=== PATIENT | female | born 1980 | race Caucasian/White ===

== ENCOUNTER 2018-10-01 19:29 | Emergency (ER) | payer OTHER ==
[~2018-10-01] VITALS: Ht 165.1 cm; Wt 123.4 kg
[~2018-10-01 19:29] MED LIST: COL100 PO; FLA500 PO; KEFLEX500 MG PO; LAC PO; NORCO1 TA2 PO
[2018-10-01 19:45] VITALS: Ht 165.1 cm; Wt 123.4 kg
[2018-10-01 22:29] VITALS: BP 139/85
== END 2018-10-01 22:29 | disposition home or self-care (01) ==
LOC: ED 19:29
DX: J02.9 Acute pharyngitis, unspecified (principal); Z90.89 Acquired absence of other organs
CPT/HCPCS: J1100

== ENCOUNTER 2020-01-13 22:40 | Emergency (ER) | payer OTHER ==
[~2020-01-13] VITALS: Ht 165.1 cm; Wt 128.0 kg
[2020-01-13 23:02] VITALS: Ht 165.1 cm; Wt 128.0 kg
[2020-01-13 23:37] VITALS: BP 132/81
== END 2020-01-13 23:37 | disposition home or self-care (01) ==
LOC: ED 22:40
DX: S50.862A Insect bite (nonvenomous) of left forearm, initial encounter (principal); L03.114 Cellulitis of left upper limb; Z90.89 Acquired absence of other organs; W57.XXXA Bitten or stung by nonvenomous insect and other nonvenomous arthropods, initial encounter; Y93.89 Activity, other specified; Y92.89 Other specified places as the place of occurrence of the external cause; Y99.8 Other external cause status